=== PATIENT | female | born 1995 | race Caucasian/White ===

== ENCOUNTER 2017-10-09 06:30 | Inpatient (IN) | payer OTHER ==
[2017-10-09] MEDS ORDERED: LACTATED RINGER'S 500 ML IV (07:58)
[2017-10-09] MEDS ORDERED: MISOPROSTOL 200 MCG TAB PR ×2 (08:00→22:30)
[2017-10-09] MEDS ORDERED: IBUPROFEN 600 MG TAB PO (08:00)
[2017-10-09] MEDS ORDERED: METHYLERGONOVINE 0.2 MG INJ IM ×2 (08:00→22:30)
[2017-10-09] MEDS ORDERED: CARBOPROST 250 MCG INJ IM ×2 (08:00→22:30)
[2017-10-09] MEDS ORDERED: OXYTOCIN 30 UNITS/LR 500 ML IV ×3 (08:00→22:30)
[2017-10-09] MEDS ORDERED: BUTORPHANOL 2 MG INJ IV (08:00)
[2017-10-09] MEDS ORDERED: HYDROCODONE/APAP (5/325) TAB PO ×2 (08:00→22:30)
[2017-10-09] MEDS: AMPICILLIN 2 GM/NS (PMX) 100 ML IV (08:22)
[2017-10-09] MEDS: OXYTOCIN 30 UNITS/LR 500 ML IV ×3 (08:23→23:15)
[2017-10-09] MEDS: LACTATED RINGER'S 500 ML IV ×4 (08:24→15:52)
[2017-10-09 08:35] LABS: ADD MAN DIFF? NO
[2017-10-09 08:38] LABS: WHITE BLOOD COUNT 12.3 10^3/ul (4.8-10.8)
[2017-10-09 08:38] LABS: BASOPHILS % 0.2 % (0.0-2.0); EOSINOPHILS # 0.2 10^3/ul (0.0-0.5); EOSINOPHILS % 1.4 % (0.0-7.0); HEMATOCRIT 26.7 % (37.0-47.0); HEMOGLOBIN 8.2 g/dl (12.0-16.0); LYMPHOCYTES # 1.9 10^3/ul (0.8-2.9); LYMPHOCYTES % 15.3 % (15.0-51.0); MEAN CORPUSCULAR HGB CONC 30.7 g/dl (32.0-37.0); MEAN CORPUSCULAR VOLUME 74.8 fl (82.0-101.0); MEAN PLATELET VOLUME 10.6 fl (7.4-10.4); MONOCYTE # 0.8 10^3/ul (0.3-0.9); MONOCYTES % 6.5 % (0.0-11.0); NEUTROPHIL # 9.3 10^3/ul (1.6-7.5); NEUTROPHILS % 75.5 % (39.0-77.0); PLATELET COUNT 382 10^3/UL (140-415); RED BLOOD COUNT 3.57 10^6/ul (4.20-5.40); RED CELL DISTRIBUTION WIDTH 16.8 % (11.5-14.5)
[2017-10-09 09:17] LABS: PARTIAL THROMBOPLASTIN TIME 28.1 Sec (25.0-35.0); PROTIME 12.2 Sec (11.9-14.9)
[2017-10-09] MEDS: AMPICILLIN 1 GM/NS (PMX) 50 ML IV ×3 (12:00→19:23)
[2017-10-09] MEDS ORDERED: FENTAnyl 2MCG/ML-ROPIV 0.2% 100 ML (15:26)
[2017-10-09] MEDS ORDERED: HYDROmorphONE 0.5 MG/0.5 ML SYG IV ×2 (16:00)
[2017-10-09] MEDS ORDERED: NALOXONE (0.4 MG/ML) INJ IV (16:00)
[2017-10-09] MEDS ORDERED: DIPHENHYDRAMINE 50 MG INJ IV (16:00)
[2017-10-09] MEDS ORDERED: KETOROLAC 30 MG INJ IV (16:00)
[2017-10-09] MEDS: ONDANSETRON 4 MG INJ IV (16:58)
[2017-10-09] MEDS: FENTAnyl 2MCG/ML-ROPIV 0.2% 100 ML BAG EPI (19:24)
[2017-10-09] MEDS: LIDOCAINE 1% (MPF) 30 ML INJ INJ (21:37)
[2017-10-09] MEDS: LACTATED RINGER'S 1,000 ML IV* (22:05)
[2017-10-09 22:36] LABS: RAPID PLASMA REAGIN NONREACTIVE (NR)
[2017-10-09] MEDS: BENZOCAINE 20% 56 ML SPRAY TOP (23:52)
[2017-10-09] MEDS: IBUPROFEN 600 MG TAB PO (23:52)
[2017-10-09] MEDS: LANOLIN 7 GM TUBE TOP (23:52)
[2017-10-10] MEDS: IBUPROFEN 600 MG TAB PO ×4 (05:32→23:31)
[2017-10-10] MEDS: LACTATED RINGER'S 1,000 ML IV* ×2 (06:05→14:05)
[2017-10-10 08:21] LABS: ADD MAN DIFF? NO
[2017-10-10 08:24] LABS: BASOPHILS % 0.2 % (0.0-2.0); EOSINOPHILS # 0.1 10^3/ul (0.0-0.5); EOSINOPHILS % 0.6 % (0.0-7.0); HEMATOCRIT 23.5 % (37.0-47.0); HEMOGLOBIN 7.1 g/dl (12.0-16.0); LYMPHOCYTES # 2.5 10^3/ul (0.8-2.9); LYMPHOCYTES % 13.9 % (15.0-51.0); MEAN CORPUSCULAR HEMOGLOBIN 22.7 pg (29.0-33.0); MEAN CORPUSCULAR HGB CONC 30.2 g/dl (32.0-37.0); MEAN CORPUSCULAR VOLUME 75.1 fl (82.0-101.0); MEAN PLATELET VOLUME 10.6 fl (7.4-10.4); MONOCYTE # 1.4 10^3/ul (0.3-0.9); MONOCYTES % 7.5 % (0.0-11.0); NEUTROPHIL # 13.9 10^3/ul (1.6-7.5); PLATELET COUNT 343 10^3/UL (140-415); RED BLOOD COUNT 3.13 10^6/ul (4.20-5.40)
[2017-10-10] MEDS: INFLUENZA VIRUS VACCINE 0.5 ML (DISPENSING) IM* (12:00)
[2017-10-11] MEDS: IBUPROFEN 600 MG TAB PO ×2 (05:31→11:25)
[2017-10-11 08:38] LABS: ADD MAN DIFF? NO
[2017-10-11 08:44] LABS: BASOPHIL # 0.1 10^3/ul (0.0-0.1); BASOPHILS % 0.4 % (0.0-2.0); EOSINOPHILS # 0.4 10^3/ul (0.0-0.5); EOSINOPHILS % 2.4 % (0.0-7.0); HEMATOCRIT 24.3 % (37.0-47.0); HEMOGLOBIN 7.3 g/dl (12.0-16.0); LYMPHOCYTES # 3.5 10^3/ul (0.8-2.9); LYMPHOCYTES % 23.4 % (15.0-51.0); MEAN CORPUSCULAR HEMOGLOBIN 22.9 pg (29.0-33.0); MEAN CORPUSCULAR VOLUME 76.2 fl (82.0-101.0); MEAN PLATELET VOLUME 11.1 fl (7.4-10.4); MONOCYTES % 6.4 % (0.0-11.0); NEUTROPHIL # 9.7 10^3/ul (1.6-7.5); NEUTROPHILS % 65.6 % (39.0-77.0); PLATELET COUNT 342 10^3/UL (140-415); RED BLOOD COUNT 3.19 10^6/ul (4.20-5.40); RED CELL DISTRIBUTION WIDTH 17.2 % (11.5-14.5)
[2017-10-11 08:44] LABS: WHITE BLOOD COUNT 14.9 10^3/ul (4.8-10.8)
[2017-10-11] MEDS: DIPHTH/TET/ACEL PERTUSS (ADULT) 0.5 ML VIAL IM* (11:25)
[2017-10-12] MEDS ORDERED: INFLUENZA VIRUS VACCINE 0.5 ML (DISPENSING) IM* (09:00)
== END 2017-10-11 14:25 | disposition home or self-care (01) | DRG 775 ==
LOC: L-D 06:30 → PP1 10-10 17:45 → L-D 10:09 → PP1 23:22
PROVIDERS: Obstetrics & Gynecology
PROC: 10E0XZZ Delivery of Products of Conception, External Approach (ICD-10-PCS; principal; 2017-10-09 06:00)
PROC: 3E0P7GC Introduction of Other Therapeutic Substance into Female Reproductive, Via Natural or Artificial Opening (ICD-10-PCS; 2017-10-09 06:00)
PROC: 4A1HXCZ Monitoring of Products of Conception, Cardiac Rate, External Approach (ICD-10-PCS; 2017-10-09 06:00)
DX: O48.0 Post-term pregnancy (principal); O99.824 Streptococcus B carrier state complicating childbirth; O70.1 Second degree perineal laceration during delivery; Z37.0 Single live birth; Z3A.40 40 weeks gestation of pregnancy; Z23 Encounter for immunization
CPT/HCPCS: 62319; 85025; 85610; 85730; 86592; 86900; 86901; 90686; 90715; 99464